=== PATIENT | male | born 1955 | race Caucasian/White ===

== ENCOUNTER → 2016-03-21 | Outpatient (CLI) | payer OTHER ==
[~2016-03-21] MED LIST: ALLO300T2 PO; AMLO2.5T PO; ATOR10TA88 PO; LOSA50TA6 PO
--- NOTE | 2016-03-21 10:41 | DIAGNOSTIC IMAGING REPORT ---
CHEST CT WITHOUT CONTRAST CT DOSE: 513.18 mGy.cm HISTORY: Lung nodule J45.909 [id number] Dyspnea on [id number] Lung nodule, multi TECHNIQUE: Multiaxial CT images of the chest were performed without contrast. COMPARISON: 10/04/2015 FINDINGS: Improved exam. The potential polypoid lesion within the trachea is no longer present and presumably represented mucus on the prior exam. No significant mediastinal or hilar adenopathy. Lungs remain clear. Micronodularity right upper lung is unchanged. There are no new interval or progressive nodules. IMPRESSION: 1. Stable to improved exam. 2. Unchanging micronodule right upper lung. 3. Study is otherwise negative. 4. The potential polypoid lesion on the prior study is not present currently and most likely represented retained mucus on the prior study Electronically signed by: Pierce Traore M.D. 03/21/2016 10:39 AM
== END | disposition home or self-care (01) ==
LOC: C.CTS 10:17
PROVIDERS: ATTEND Internal Medicine Critical Care Medicine
DX: J45.909 Unspecified asthma, uncomplicated (principal); R06.02 Shortness of breath; R06.09 Other forms of dyspnea; R91.1 Solitary pulmonary nodule; R91.8 Other nonspecific abnormal finding of lung field

== ENCOUNTER → 2016-06-18 | Outpatient (CLI) | payer OTHER ==
[~2016-06-18] MED LIST changes: +ATOR10TA82 PO; -ATOR10TA88 PO
[2016-06-18 09:23] LABS: BASO ABS # 0.05 K/uL (0-0.2); COMPLETE YES; EOS % 1.8 %; HEMATOCRIT 40.2 % (42-52); IG% 0.2 %; LYMPH % 27.4 %; LYMPH ABS # 1.37 K/uL (1.2-3.4); MEAN CELL VOLUME 88.5 fL (80-100); MEAN CORPUSCULAR HEMOGLOBIN 28.9 pg (25-34); MEAN CORPUSCULAR HGB CONC 32.6 g/dl (32-36); MEAN PLATELET VOLUME 10.3 fL (7.4-10.4); NEUT % 62.6 %; PLATELET COUNT 251 K/uL (130-400); RED BLOOD COUNT 4.54 M/uL (4.7-6.1)
[2016-06-18 09:40] LABS: AST/SGOT 23 U/L (15-37); BLOOD UREA NITROGEN 15 mg/dl (7-18); CALCIUM 9.1 mg/dl (8.5-10.1); CARBON DIOXIDE 29 mmol/L (21-32); CHLORIDE 105 mmol/L (98-107); CREATININE 0.89 mg/dl (0.60-1.40); GLUCOSE 94 mg/dl (70-99); SODIUM 140 mmol/L (136-145)
[2016-06-18 09:47] LABS: ALT/SGPT 26 U/L (12-78); CHOLESTEROL 177 mg/dl (0-200); CHOLESTEROL/HDL RATIO 2.8; HDL CHOLESTEROL 63 mg/dl; LDL CHOLESTEROL CALCULATED 99 mg/dl; TRIGLYCERIDES 75 mg/dl (0-150); VERY LOW DENSITY LIPOPROT CALC 15 mg/dl
== END | disposition home or self-care (01) ==
LOC: C.LAB1850 07:27
PROVIDERS: ATTEND Internal Medicine
DX: E78.5 Hyperlipidemia, unspecified (principal); N40.1 Benign prostatic hyperplasia with lower urinary tract symptoms; D64.9 Anemia, unspecified; I10 Essential (primary) hypertension

== ENCOUNTER → 2016-12-24 | Outpatient (CLI) | payer OTHER ==
[~2016-12-24] MED LIST changes: -ATOR10TA82 PO; +ATOR10TA88 PO
[2016-12-24 09:37] LABS: BASO % 0.6 %; BASO ABS # 0.03 K/uL (0-0.2); COMPLETE YES; EOS % 1.6 %; HEMATOCRIT 38.4 % (42-52); IG% 0.2 %; LYMPH % 28.2 %; LYMPH ABS # 1.37 K/uL (1.2-3.4); MEAN CELL VOLUME 86.9 fL (80-100); MEAN CORPUSCULAR HEMOGLOBIN 28.7 pg (25-34); MEAN CORPUSCULAR HGB CONC 33.1 g/dl (32-36); MEAN PLATELET VOLUME 10.3 fL (7.4-10.4); MONO % 9.1 %; NEUT % 60.3 %; PLATELET COUNT 258 K/uL (130-400); RED BLOOD COUNT 4.42 M/uL (4.7-6.1); WHITE BLOOD COUNT 4.86 K/uL (4.8-10.8)
[2016-12-24 09:50] LABS: ALT/SGPT 30 U/L (12-78); AST/SGOT 16 U/L (15-37); BLOOD UREA NITROGEN 18 mg/dl (7-18); BUN/CREATININE RATIO 19.3 (10-20); CALCIUM 9.1 mg/dl (8.5-10.1); CARBON DIOXIDE 29 mmol/L (21-32); CHLORIDE 107 mmol/L (98-107); CREATININE 0.91 mg/dl (0.60-1.40); GLUCOSE 94 mg/dl (70-99); POTASSIUM 3.9 mmol/L (3.5-5.1); SODIUM 140 mmol/L (136-145)
[2016-12-24 09:58] LABS: CHOLESTEROL 191 mg/dl (0-200); CHOLESTEROL/HDL RATIO 2.9; FERRITIN 34.1 ng/ml (8.0-388.0); HDL CHOLESTEROL 66 mg/dl; LDL CHOLESTEROL CALCULATED 108 mg/dl; TRIGLYCERIDES 84 mg/dl (0-150); URIC ACID 6.2 mg/dl (2.6-7.2); VERY LOW DENSITY LIPOPROT CALC 17 mg/dl
== END | disposition home or self-care (01) ==
LOC: C.LAB1850 07:53
PROVIDERS: ATTEND Internal Medicine
DX: E78.5 Hyperlipidemia, unspecified (principal); M10.9 Gout, unspecified; D64.9 Anemia, unspecified

== ENCOUNTER → 2017-05-19 | Outpatient (CLI) | payer OTHER ==
[~2017-05-19] MED LIST changes: +ATOR10TA82 PO; -ATOR10TA88 PO
[2017-05-19 11:20] LABS: ALT/SGPT 23 U/L (12-78); AST/SGOT 13 U/L (15-37); BLOOD UREA NITROGEN 17 mg/dl (7-18); CALCIUM 9.2 mg/dl (8.5-10.1); CARBON DIOXIDE 28 mmol/L (21-32); CREATININE 0.96 mg/dl (0.60-1.40); GLUCOSE 113 mg/dl (70-99); POTASSIUM 3.9 mmol/L (3.5-5.1); SODIUM 138 mmol/L (136-145)
[2017-05-19 11:25] LABS: CHOLESTEROL 172 mg/dl (0-200); LDL CHOLESTEROL CALCULATED 96 mg/dl
[2017-05-19 13:30] LABS: HEMATOCRIT 40.5 % (42-52); HEMOGLOBIN 13.4 g/dL (14.0-18.0); MEAN CELL VOLUME 86.9 fL (80-100); MEAN CORPUSCULAR HEMOGLOBIN 28.8 pg (25-34); MEAN CORPUSCULAR HGB CONC 33.1 g/dl (32-36); MEAN PLATELET VOLUME 10.1 fL (7.4-10.4); PLATELET COUNT 267 K/uL (130-400); RED CELL DISTRIBUTION WIDTH CV 14.5 % (11.5-14.5); RED CELL DISTRIBUTION WIDTH SD 45.9 fL (36.4-46.3); WHITE BLOOD COUNT 5.69 K/uL (4.8-10.8)
== END | disposition home or self-care (01) ==
LOC: C.LABBC 08:40
PROVIDERS: ATTEND Internal Medicine
DX: E78.5 Hyperlipidemia, unspecified (principal); M10.9 Gout, unspecified; I10 Essential (primary) hypertension; N40.1 Benign prostatic hyperplasia with lower urinary tract symptoms

== ENCOUNTER → 2017-10-06 | Outpatient (CLI) | payer OTHER | END | disposition home or self-care (01) | LOC: C.LAB1850 07:18 | PROVIDERS: ATTEND Internal Medicine | DX: R97.20 Elevated prostate specific antigen [PSA] (principal); R73.09 Other abnormal glucose ==

== ENCOUNTER → 2017-10-17 | Outpatient (CLI) | payer OTHER ==
--- NOTE | 2017-10-17 07:33 | DIAGNOSTIC IMAGING REPORT ---
(CHEST) THORAX WITHOUT CT DOSE: 666.62 mGycm CLINICAL HISTORY: 62 years-old Male with R91.8 Lung nodule, multipleto be done in September 2017 prior to appo. Follow-up study in a patient with history of pulmonary nodules TECHNIQUE: Multiaxial CT images of the chest were performed without contrast. A dose lowering technique was utilized adhering to the principles of ALARA. COMPARISON: CT chest 03/21/2016 and 10/13/2015. FINDINGS: 1.0 cm hypodense left thyroid nodule. No pathologically enlarged lymph nodes of the chest. 3 mm epicardial nodule on image 260 series 4 suggests epicardial lymph node. Heart is normal in size. No thoracic aortic aneurysm. There is no pneumothorax or pleural effusion. Central airways are patent. 5 mm pleural-based nodule adjacent to the right lower lobe on image 197 series 4 is unchanged. Unchanged 4 mm solid nodule of the apical segment right upper lobe on image 96 series 4. 4 mm nodule abutting the superior aspect of the right major fissure on image 122 series 4 is unchanged. There are no new or enlarging pulmonary nodules identified. No focal airspace consolidation to suggest pneumonia. 2 mm solid nodule of the left upper lobe, image 135 series 4 is unchanged. Unchanged 1.7 cm hypodense lesion of the subserosal posterior right hepatic lobe suggesting probable hepatic cyst. Mild nonspecific bilateral perinephric stranding. Soft tissues are within normal limits. The bones appear to be intact. Suggested rotator cuff calcific tendinosis about the bilateral shoulders. Multilevel spondylitic spurring of the spine. IMPRESSION: 1. No acute intrathoracic abnormality identified. 2. Bilateral solid pulmonary nodules measuring up to 5 mm appear unchanged dating back to 10/13/2015. No new or enlarging nodules identified. Based on the guidelines below, no additional follow-up is recommended according to the Fleischner Society. 3. No focal airspace consolidation or pathologically enlarged lymph nodes. Please refer to below summary of Fleischner criteria recommendations for follow-up of incidental CT nodules (Jaime Wellington, Guidelines for management of small pulmonary nodules detected on CT scans: A statement from the Fleischner Society, Radiology 237: [phone].) SOLID NODULES Multiple nodules size: <6 mm * Low risk patients: no routine follow-up * high risk patients: optional CT at 12 months Note: newly detected indeterminate nodule in persons 35 years of age or older. * Low risk patients: minimal or absent history of smoking and/or other known risk factors * high risk patients: history of smoking or of other known risk factors (e.g. first degree relative with lung cancer, or exposure to asbestos, radon, uranium) * if a nodule up to 8 mm is partly solid or is ground glass further follow-up is required after 24 months to exclude possible slow growing adenocarcinoma (STEPHANE) The above report was generated using voice recognition software. It may contain grammatical, syntax or spelling errors. Electronically signed by: Hernan Issa M.D. 10/17/2017 7:32 AM Dictated Date/Time: 10/17/2017 7:13 AM
== END | disposition home or self-care (01) ==
LOC: C.CTS 06:51
PROVIDERS: ATTEND Internal Medicine Critical Care Medicine
DX: R91.8 Other nonspecific abnormal finding of lung field (principal)